=== PATIENT | female | born 2000 | race Caucasian/White ===

== ENCOUNTER → 2021-06-27 | Outpatient (CLI) | payer OTHER | END | disposition home or self-care (01) | LOC: LABWHC1 13:07 | PROVIDERS: ATTEND Obstetrics & Gynecology | DX: O00.90 Unspecified ectopic pregnancy without intrauterine pregnancy (principal); Z3A.00 Weeks of gestation of pregnancy not specified | CPT/HCPCS: 36415; 84702; 86850; 86900; 86901 ==

== ENCOUNTER → 2022-01-25 | Outpatient (CLI) | payer OTHER ==
[2022-01-25 06:55] VITALS: BP 142/83; PULSE 123; RESP 16; TEMP 97
--- NOTE | 2022-01-25 07:23 | P.MSEPDOC ---
Presenting Problems - Arrival Data Date of Arrival on Unit: 01/25/22 Time of Arrival on Unit: 02:11 Mode of Transport: Ambulatory - Complaint OB-Reason for Admission/Chief Complaint: Pain Comment: Patient arrived in triage with cramping pain 4/10 and bilateral leg swelling 1+ lower leg edema. 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 Review of Systems - Review of Systems Constitutional: No problems Breast: No problems ENT: No problems Cardiovascular: No problems Respiratory: No problems Gastrointestinal: No problems Genitourinary: No problems Musculoskeletal: No problems Neurological: No problems Skin: No problems Vital Signs - Temperature Temperature: 97.0 F Temperature Source: Oral - Pulse Pulse Oximetery Pulse Rate: 123 Pulse Assessment Method: Pulse Oximetry - Respirations Respiratory Rate: 16 Oxygen Delivery Method: Room Air O2 Sat by Pulse Oximetry: 100 - Blood Pressure Right Arm Blood Pressure: 142/83 Blood Pressure Mean: 102 Blood Pressure Source: Automatic Cuff Medical Screen Scoring - Uterine Contractions Frequency From (mins): 2 Frequency To (mins): 3 Duration From (seconds): 30 Duration To (seconds): 70 Intensity: Mild Resting: Soft to palpation - Assessment - Baby A Baseline FHR: 120 Heart Rate - NICHD Category: Category I (Normal) NST: Reactive Physician Notification - Physician Notified Physician Notified Date: 01/25/22 Physician Notified Time: 02:40 Physician: Guillermo Diamond New Order Received: Yes Maternal Triage Index - Non-Urgent/Priority 4 Non-Urgent Priority 4: Yes Criteria Met for Priority 4: RN spoke with Dr. Dara Diamond aware of maternal status, status,. reason for visit, cervical check, and amnisure negative result, orders to keep patient. for 1 hour check BP if elevated above 140/[address] Diamond and check cervix in 1. hour. If no change and BP stable discharge patient. Disposition - Disposition OB Disposition: Discharge to home Discharge Date: 01/25/22 Discharge Time: 03:52 I agree with the RN Medical Screening Exam: Yes Case reviewed; plan agreed upon as documented in EMR&OBIX.: Yes Diagnosis: FALSE LABOR BEFORE 37 COMPLETED WEEKS OF GEST, THIRD TRI (Patient presents to triage with complaints of low back pain, chronic lower extremity edema, concern of labor. Patient's been followed by Dr. Tinoco for severe scoliosis. Patient is scheduled for section for this reason. Cervix is closed. Patient's back pain and edema have been going on for many months throughout the and there is no evidence of maternal compromise. Patient did have an initial blood pressure was mildly elevated once at admission thought to be secondary to pain. Multiple serial blood pressure shows that it is not elevated. Patient will follow up in the office as scheduled or return if she has any concerns)
== END | disposition home or self-care (01) ==
LOC: FBPOP 02:11
PROVIDERS: ATTEND Obstetrics & Gynecology
DX: O47.03 False labor before 37 completed weeks of gestation, third trimester (principal); Z3A.36 36 weeks gestation of pregnancy
CPT/HCPCS: 59025; 84112; G0463; 99213

== ENCOUNTER 2022-02-13 09:46 | Inpatient (IN) | payer OTHER ==
[2022-02-07 15:04] VITALS: BMI 34.0
[2022-02-13] MEDS ORDERED: LACTATED RINGERS 1,000 ML IV ONE (10:04)
[2022-02-13] MEDS ORDERED: CITRIC ACID-SODIUM CITRATE 15 ML CUP PO ONE (10:04)
[2022-02-13 11:01] LABS: Basophils % (A) 0 %; Eosinophils # (A) 0.1 k/uL (0-0.7); Eosinophils % (A) 1 %; HCT 35.8 % (34.0-46.0); HGB 11.9 gm/dL (11.4-16.0); Hypochromasia Slight; Lymphocytes # (A) 1.9 k/uL (1.0-4.8); Lymphocytes % (A) 22 %; MCH 28.7 pg (25.0-35.0); MCHC 33.2 g/dL (31.0-37.0); MCV 86.5 fL (80.0-100.0); Mean Platelet Volume 8.9; Monocytes # (A) 0.5 k/uL (0-1.0); Monocytes % (A) 6 %; Neutrophils % (A) 69 %; Platelet Count 151 k/uL (150-450); RBC 4.14 m/uL (3.80-5.40); RDW 15.1 % (11.5-15.5); WBC 8.7 k/uL (3.8-10.6)
[2022-02-13] MEDS ORDERED: INFLUENZA VACC (6 MOS-64 YRS) 60 MCG/0.5 ML SYRINGE IM ONE (11:22)
--- NOTE | 2022-02-13 12:14 | P.HPOB ---
History of Present Illness H&P Date: 02/13/22 Chief Complaint: primary low transverse with Tubal ligation 21 year old presents at 39 weeks 4 days for primary low transverse c- section and tubal ligation. She has had surgery on her back and pelvis contraindicating vaginal delivery. Review of Systems All systems: negative Constitutional: Denies chills, Denies fever Eyes: denies blurred vision, denies pain Ears, nose, mouth and throat: Denies headache, Denies sore throat Cardiovascular: Denies chest pain, Denies shortness of breath Respiratory: Denies cough Gastrointestinal: Denies abdominal pain, Denies diarrhea, Denies nausea, Denies vomiting Genitourinary: Denies dysuria, Denies hematuria Musculoskeletal: Denies myalgias Integumentary: Denies pruritus, Denies rash Neurological: Denies numbness, Denies weakness Psychiatric: Denies anxiety, Denies depression Endocrine: Denies fatigue, Denies weight change Past Medical History Past Medical History: Asthma Additional Past Medical History / Comment(s): severe congenital scoliosis,"conjoined ribs", anemia History of Any Multi-Drug Resistant Organisms: None Reported Past Surgical History: Back Surgery Additional Past Surgical History / Comment(s): multiple back surgeries Past Anesthesia/Blood Transfusion Reactions: No Reported Reaction, Motion Sickness Additional Past Anesthesia/Blood Transfusion Reaction / Comment(s): no known problems w/ blood transfusion Past Psychological History: No Psychological Hx Reported Smoking Status: Never smoker Past Alcohol Use History: None Reported Past Drug Use History: None Reported - Past Family History Mother Family Medical History: No Reported History Medications and Allergies Home Medications Medication Instructions Recorded Confirmed Type Vit No.179/Iron/Folic 1 tab PO DAILY 01/25/22 02/13/22 History [ Tablet] Allergies Allergy/AdvReac Type Severity Reaction Status Date / Time adhesive tape Allergy Rash/Hives Verified 02/13/22 10:13 Exam Osteopathic Statement: *. No significant issues noted on an osteopathic structural exam other than those noted in the History and Physical/Consult. Vital Signs Temp Pulse Resp BP Pulse Ox 02/13/22 10:04 97.8 F 115 H 16 127/75 98 Intake and Output 02/12/22 02/13/22 02/13/22 22:59 06:59 14:59 Other: Weight 73.936 kg HEart: RRR Lungs: CTAB Abdomen: soft, nontender Extremeties: neg uvaldo's Results Result Diagrams: 02/13/22 10:42 Assessment and Plan (1) Scoliosis Current Visit: Yes Status: Acute Code(s): M41.9 - SCOLIOSIS, UNSPECIFIED SNOMED Code(s): 819825172 (2) History of back surgery Current Visit: Yes Status: Acute Code(s): Z98.890 - OTHER SPECIFIED POSTPROCEDURAL STATES SNOMED Code(s): 258696534 (3) 39 weeks gestation of Current Visit: Yes Status: Acute Code(s): Z3A.39 - 39 WEEKS GESTATION OF SNOMED Code(s): 35461977 (4) Family planning Current Visit: Yes Status: Acute Code(s): Z30.09 - ENCOUNTER FOR OT GENERAL CNSL AND ADVICE ON CONTRACEPTION SNOMED Code(s): 712707295 Plan: 1. primary low transverse with tubal ligation
[2022-02-13] MEDS ORDERED: HYDROmorphone (PF) 1 MG/ML ONE (12:21)
[2022-02-13] MEDS ORDERED: fentaNYL (PF) 50 MCG/ML 2 ML AMP ONE (12:21)
[2022-02-13] MEDS ORDERED: PROPOFOL 10 MG/ML 20 ML VIAL IV ONE (12:21)
[2022-02-13] MEDS ORDERED: LIDOCAINE 2% INJ 20 MG/ML (2 ML VIAL) ONE (12:21)
[2022-02-13] MEDS ORDERED: OXYTOCIN 30 UNITS/500 ML NS BAG IV ONE (12:21)
[2022-02-13] MEDS ORDERED: SUCCINYLCHOLINE CHLORIDE 200 MG/10 ML VIAL IV ONE (12:21)
[2022-02-13] MEDS ORDERED: NALOXONE 0.4 MG/ML 1 ML VIAL IV PRN ×2 (13:01→13:02)
[2022-02-13] MEDS ORDERED: diphenhydrAMINE 25 MG CAP PO PRN (13:01)
[2022-02-13] MEDS ORDERED: ZOLPIDEM 5 MG TAB PO PRN (13:01)
[2022-02-13] MEDS ORDERED: SIMETHICONE 80 MG CHEWABLE PO PRN (13:01)
[2022-02-13] MEDS ORDERED: METOCLOPRAMIDE 5 MG/ML 2 ML VIAL IVP PRN (13:01)
[2022-02-13] MEDS ORDERED: diphenhydrAMINE 50 MG CAP PO PRN (13:01)
[2022-02-13] MEDS ORDERED: ONDANSETRON 4 MG/2 ML VIAL IVP PRN (13:01)
[2022-02-13] MEDS ORDERED: diphenhydrAMINE 50 MG/ML 1 ML VIAL IVP PRN ×2 (13:01)
[2022-02-13] MEDS ORDERED: LANOLIN CREAM 5 GM TUBE TOPICAL PRN (13:01)
[2022-02-13] MEDS ORDERED: HYDROmorphone PCA 10 MG/50 ML BAG IV PRN (13:02)
[2022-02-13] MEDS: LACTATED RINGERS 1,000 ML IV SCH ×2 (13:05→23:58)
--- NOTE | 2022-02-13 13:07 | P.OP ---
Date of Procedure: 02/13/22 Preoperative Diagnosis: 1. at 39 weeks 4 days 2. congenital scoliosis with conjoined ribs and hx back surgery 3. family planning Postoperative Diagnosis: 1. at 39 weeks 4 days 2. congenital scoliosis with conjoined ribs and hx back surgery 3. family planning Procedure(s) Performed: primary low transverse with tubal ligation Anesthesia: TOY Surgeon: Radha Tinoco Sole Stapler Welt #1: Guillermo Diamond Estimated Blood Loss (ml): 500 IV fluids (ml): 700 Urine output (ml): 200 Pathology: other (segments of bilateral fallopian tubes) Condition: stable Disposition: floor Operative Findings: normal uterus, tubes, ovaries. Viable female, Apgars 9, 9, weight 7 pounds Description of Procedure: Patient was taken to the operating room where Gen. anesthesia was obtained without difficulty. She was prepped and draped in normal sterile fashion in dorsal supine position with a leftward tilt. Pfannenstiel skin incision was made the scalpel and carried through to the underlying layer of fascia with the scalpel. Fascia was incised in midline and carried bilaterally with the Arce scissors. The superior aspect of the fascial incision was grasped with Cherokee clamps elevated and the underlying rectus muscles dissected off with the Arce's. Attention was then turned to inferior aspect of same incision which in a similar fashion was grasped tented up and the underlying rectus muscles dissected off with the Arce's. The rectus muscles were the midline and the peritoneum was identified tented up and entered sharply with the scalpel. The incision was extended superiorly and inferiorly with good visualization of the bladder. The bladder blade was inserted and the vesicouterine peritoneum was incised the Metzenbaums then carried bilaterally and bladder flap created digitally. A low transverse incision was then made on the uterus with the scalpel. This was carried bilaterally and digital manner. 's head delivered atraumatically, nose and mouth bulb suctioned, cord clamped and cut, infant handed off to waiting nurses. Apgars 9,9, weight 7 lbs. Placenta delivered manually, intact with three-vessel cord. The uterus is exteriorized and cleared of all clots and debris. The uterine incision was closed with 0 Vicryl in a running locked fashion. Second layer of the same sutures used in imbricating fashion to obtain excellent hemostasis. Both ovaries and tubes appeared normal. the right fallopian tube was grasped with a hemostat and a window was made in the mesosalpinx with the Bovie. This fallopian tube was doubly ligated segment was removed and the pedicles were cauterized with the Bovie. The left fallopian tube was grasped 6 hemostat and a window was made in the mesosalpinx with the Bovie. This fallopian tube was doubly ligated, segment was removed, and the pedicles were cauterized with the Bovie.The uterus was placed back into the abdomen. The peritoneum was reapproximated using 2-0 Vicryl in a running fashion. The muscles were reapproximated using 2-0 Vicryl in interrupted fashion. The fascia was reapproximated using 0 Vicryl in a running fashion. The subcutaneous tissues closed with 3-0 Vicryl running fashion. The skin was closed landon. Patient tolerated the procedure well, sponge and instrument counts were correct times 2 and she was taken to the recovery room in stable condition.
[2022-02-13] MEDS ORDERED: OXYTOCIN 30 UNITS/500 ML NS 30 UNIT in SALINE 1 500ML.BAG IV SCH (13:15)
[2022-02-13] MEDS: ACETAMINOPHEN TAB 500 MG TAB PO SCH ×2 (17:48→23:59)
[2022-02-13] MEDS ORDERED: Rhogam IMMUNE GLOBULIN 1,500 UNIT/1 ML IM ONE (20:55)
[2022-02-13] MEDS: SENNOSIDES-DOCUSATE SODIUM 1 EACH TAB PO SCH (20:57)
[2022-02-13] MEDS: IBUPROFEN 600 MG TAB PO SCH (21:24)
[2022-02-13] MEDS: KETOROLAC 15 MG/ML 1 ML VIAL IVP SCH (23:56)
[2022-02-14] MEDS: ACETAMINOPHEN TAB 500 MG TAB PO SCH ×4 (03:12→23:59)
[2022-02-14] MEDS: LACTATED RINGERS 1,000 ML IV SCH ×2 (03:12→14:19)
[2022-02-14] MEDS: IBUPROFEN 600 MG TAB PO SCH ×4 (03:14→17:37)
[2022-02-14] MEDS: KETOROLAC 15 MG/ML 1 ML VIAL IVP SCH ×3 (06:17→20:39)
[2022-02-14 06:37] LABS: Basophils % (A) 0 %; Eosinophils % (A) 0 %; Hypochromasia Moderate; Lymphocytes # (A) 1.8 k/uL (1.0-4.8); Lymphocytes % (A) 18 %; MCH 29.3 pg (25.0-35.0); MCHC 33.3 g/dL (31.0-37.0); MCV 88.1 fL (80.0-100.0); Monocytes # (A) 0.6 k/uL (0-1.0); Monocytes % (A) 7 %; Neutrophils % (A) 73 %; Platelet Count 147 k/uL (150-450); RBC 1.99 m/uL (3.80-5.40); RDW 15.9 % (11.5-15.5); WBC 9.6 k/uL (3.8-10.6)
[2022-02-14 07:10] LABS: HCT 17.6 % (34.0-46.0); HGB 5.8 gm/dL (11.4-16.0)
[2022-02-14 07:50] LABS: Basophils % (A) 0 %; Eosinophils % (A) 0 %; Hypochromasia Moderate; Lymphocytes # (A) 1.6 k/uL (1.0-4.8); Lymphocytes % (A) 19 %; MCHC 32.7 g/dL (31.0-37.0); MCV 88.8 fL (80.0-100.0); Mean Platelet Volume 9.1; Monocytes # (A) 0.5 k/uL (0-1.0); Monocytes % (A) 6 %; Neutrophils # (A) 6.2 k/uL (1.3-7.7); Neutrophils % (A) 73 %; Platelet Count 149 k/uL (150-450); RBC 1.99 m/uL (3.80-5.40); RDW 15.9 % (11.5-15.5); WBC 8.5 k/uL (3.8-10.6)
[2022-02-14 08:09] LABS: HCT 17.7 % (34.0-46.0); HGB 5.8 gm/dL (11.4-16.0)
[2022-02-14] MEDS: SENNOSIDES-DOCUSATE SODIUM 1 EACH TAB PO SCH ×2 (09:00→20:40)
--- NOTE | 2022-02-14 09:10 | P.PNOBGPC ---
Subjective - Subjective Principal diagnosis: S/P primary low transverse POD #1 Interval history: Seen and examined. Denies nausea, vomiting, chest pain, shortness of breath or calf pain. She did pass several clots when she got up earlier and had ringing in her ears. Her hemoglobin today came back very low at 5.8 which I repeated it was the same. We discussed the risks and benefits of taking a blood transfusion. Patient agrees to this and will take one unit of packed red blood cells Patient reports: Reports appetite normal, Reports voiding normally, Reports pain well controlled, Reports ambulating normally [place]: doing well Objective - Vital Signs Latest vital signs: Vital Signs Temp Pulse Resp BP Pulse Ox 02/14/22 08:46 97 16 100 02/14/22 07:42 98.6 F 86 16 118/65 99 02/14/22 04:00 98.2 F 104 H 16 108/69 97 02/14/22 00:00 98.4 F 93 14 121/79 99 02/13/22 20:00 98.7 F 98 16 111/68 96 02/13/22 15:05 98.1 F 122 H 14 98/54 99 02/13/22 14:35 98.1 F 119 H 14 115/55 94 L 02/13/22 14:05 98.1 F 115 H 16 127/59 95 02/13/22 13:50 98.2 F 91 16 133/68 100 02/13/22 13:35 98.2 F 109 H 18 122/74 98 02/13/22 13:20 97 18 137/74 100 02/13/22 13:17 100 02/13/22 13:05 97.9 F 108 H 18 127/80 100 02/13/22 10:04 97.8 F 115 H 16 127/75 98 Intake and Output 02/13/22 02/14/22 02/14/22 22:59 06:59 14:59 Output Total 862 200 Balance -862 -200 Output: Urine 300 200 Uretheral (Stokes) 100 Output, Quantitative 562 Blood Loss Other: # Voids 0 - Exam Lungs: bilateral: normal Chest: Normal S1, Normal S2 Extremities: Present: normal Abdomen: Present: normal appearance, soft. Absent: distention, tenderness Incision: Present: normal, dry, intact Uterus: Present: normal, firm - Labs Labs: Abnormal Lab Results - Last 24 Hours (Table) 02/13/22 02/14/22 02/14/22 Range/Units 10:42 06:12 07:31 RBC 1.99 L 1.99 L (3.80-5.40) m/uL Hgb 5.8 L* D 5.8 L* (11.4-16.0) gm/dL Hct 17.6 L* 17.7 L* (34.0-46.0) % RDW 15.9 H 15.9 H (11.5-15.5) % Plt Count 147 L 149 L (150-450) k/uL Crossmatch See Detail Assessment and Plan (1) Scoliosis Current Visit: Yes Status: Chronic Code(s): M41.9 - SCOLIOSIS, UNSPECIFIED SNOMED Code(s): 848935197 (2) History of back surgery Current Visit: Yes Status: Chronic Code(s): Z98.890 - OTHER SPECIFIED POSTPROCEDURAL STATES SNOMED Code(s): 453301310 (3) 39 weeks gestation of Current Visit: Yes Status: Resolved Code(s): Z3A.39 - 39 WEEKS GESTATION OF SNOMED Code(s): 43908681 (4) Family planning Current Visit: Yes Status: Resolved Code(s): Z30.09 - ENCOUNTER FOR OT GENERAL CNSL AND ADVICE ON CONTRACEPTION SNOMED Code(s): 346813802 (5) Status post primary low transverse section Current Visit: Yes Status: Acute Code(s): Z98.891 - HISTORY OF UTERINE SCAR FROM PREVIOUS SURGERY SNOMED Code(s): 162492201 (6) Status post tubal ligation at time of delivery, current hosp Current Visit: Yes Status: Acute Code(s): O80 - ENCOUNTER FOR FULL-TERM UNCOMPLICATED DELIVERY; Z30.2 - ENCOUNTER FOR STERILIZATION SNOMED Code(s): 31786366938032 (7) Acute blood loss anemia Current Visit: Yes Status: Acute Code(s): D62 - ACUTE POSTHEMORRHAGIC ANEMIA SNOMED Code(s): 364504152 Plan: 1. Transfuse 1 unit of packed red blood cells 2. Monitor vitals closely 3. Regular diet
[2022-02-14] MEDS: FERROUS SULFATE 325 MG TAB PO SCH ×2 (12:30→17:37)
[2022-02-15] MEDS: KETOROLAC 15 MG/ML 1 ML VIAL IVP SCH ×4 (00:02→18:04)
[2022-02-15 05:55] LABS: Anisocytosis Slight; Basophils % (A) 0 %; Eosinophils # (A) 0.1 k/uL (0-0.7); Eosinophils % (A) 1 %; HCT 21.8 % (34.0-46.0); HGB 7.1 gm/dL (11.4-16.0); Hypochromasia Moderate; Lymphocytes # (A) 2.2 k/uL (1.0-4.8); Lymphocytes % (A) 28 %; MCH 29.1 pg (25.0-35.0); MCHC 32.5 g/dL (31.0-37.0); MCV 89.6 fL (80.0-100.0); Mean Platelet Volume 8.2; Monocytes # (A) 0.4 k/uL (0-1.0); Monocytes % (A) 4 %; Neutrophils # (A) 5.1 k/uL (1.3-7.7); Neutrophils % (A) 64 %; Platelet Count 179 k/uL (150-450); Poikilocytosis Slight; RBC 2.43 m/uL (3.80-5.40); RDW 16.1 % (11.5-15.5)
--- NOTE | 2022-02-15 06:30 | P.PNOBGPC ---
Subjective - Subjective Patient reports: Reports appetite normal, Reports voiding normally, Reports pain well controlled, Reports ambulating normally : doing well Objective - Vital Signs Latest vital signs: Vital Signs Temp Pulse Pulse Resp BP BP Pulse Ox 02/15/22 00:00 97.9 F 108 H 16 100/64 99 02/14/22 16:00 98.4 F 98 16 114/70 98 02/14/22 12:03 98.5 F 94 16 106/69 98 02/14/22 12:00 98.5 F 94 16 106/69 98 02/14/22 10:18 98.5 F 104 H 16 97/63 98 02/14/22 09:58 97.7 F 99 16 113/73 99 02/14/22 09:50 98.5 F 112 H 16 110/63 02/14/22 08:46 97 16 100 02/14/22 07:42 98.6 F 86 16 118/65 99 Intake and Output 02/14/22 02/14/22 02/15/22 14:59 22:59 06:59 Intake Total 281 Output Total 600 Balance -319 Intake: Blood Product 281 Rc Pheresis 2 As3 Unit 281 [id number] Output: Urine 600 Other: # Voids 1 - Exam Lungs: bilateral: normal Chest: Normal S1, Normal S2 Extremities: Present: normal Abdomen: Present: normal appearance, soft. Absent: distention, tenderness Incision: Present: normal, dry, intact Uterus: Present: normal, firm - Labs Labs: Abnormal Lab Results - Last 24 Hours (Table) 02/13/22 02/14/22 02/14/22 Range/Units 10:42 06:12 07:31 RBC 1.99 L 1.99 L (3.80-5.40) m/uL Hgb 5.8 L* D 5.8 L* (11.4-16.0) gm/dL Hct 17.6 L* 17.7 L* (34.0-46.0) % RDW 15.9 H 15.9 H (11.5-15.5) % Plt Count 147 L 149 L (150-450) k/uL Crossmatch See Detail 02/15/22 Range/Units 05:41 RBC 2.43 L (3.80-5.40) m/uL Hgb 7.1 L (11.4-16.0) gm/dL Hct 21.8 L (34.0-46.0) % RDW 16.1 H (11.5-15.5) % Plt Count (150-450) k/uL Crossmatch Assessment and Plan Assessment: Post operative day #2. Patient is resting without new complaints. Patient had a significant drop in her hemoglobin from preoperative to postoperative and was given 1 unit of packed red blood cells yesterday. Patient's hemoglobin is had an appropriate increase from 5.8 to 7.1. Patient still tired but is ambulating and urinating without difficulty. Vital signs are stable. Exam shows her incision to be intact and dry she is having normal lochia. My impression is that she's had secondary anemia due to surgery and does not appear to have ongoing bleeding. Plan is to continue routine postoperative care and most likely discharge home tomorrow. I did start her on some iron therapy. (1) Status post primary low transverse section Current Visit: Yes Status: Acute Code(s): Z98.891 - HISTORY OF UTERINE SCAR FROM PREVIOUS SURGERY SNOMED Code(s): 360802510 (2) 39 weeks gestation of Current Visit: Yes Status: Resolved Code(s): Z3A.39 - 39 WEEKS GESTATION OF SNOMED Code(s): 93561343
[2022-02-15] MEDS: IBUPROFEN 600 MG TAB PO SCH ×3 (06:46→17:56)
[2022-02-15] MEDS: FERROUS SULFATE 325 MG TAB PO SCH ×2 (08:17→18:23)
[2022-02-15] MEDS: SENNOSIDES-DOCUSATE SODIUM 1 EACH TAB PO SCH ×3 (08:17→20:02)
[2022-02-15] MEDS: ACETAMINOPHEN TAB 500 MG TAB PO SCH ×3 (12:53→20:02)
[2022-02-15 21:13] VITALS: RESP 18
[2022-02-16] MEDS: ACETAMINOPHEN TAB 500 MG TAB PO SCH ×3 (02:26→08:54)
[2022-02-16] MEDS: IBUPROFEN 600 MG TAB PO SCH ×3 (02:26→08:55)
[2022-02-16] MEDS: KETOROLAC 15 MG/ML 1 ML VIAL IVP SCH ×2 (02:27→08:55)
--- NOTE | 2022-02-16 06:22 | P.PNOBGPC ---
Subjective - Subjective Patient reports: Reports appetite normal, Reports voiding normally, Reports pain well controlled, Reports ambulating normally : doing well Objective - Vital Signs Latest vital signs: Vital Signs Temp Pulse Resp BP Pulse Ox 02/16/22 00:00 98.0 F 95 18 108/67 100 02/15/22 20:00 98.2 F 99 18 114/72 100 02/15/22 16:00 98.2 F 98 16 114/73 100 02/15/22 12:00 98.4 F 91 16 116/74 100 02/15/22 08:00 97.8 F 91 16 101/63 100 Intake and Output 02/15/22 02/15/22 02/16/22 14:59 22:59 06:59 Other: # Voids 2 - Exam Lungs: bilateral: normal Chest: Normal S1, Normal S2 Extremities: Present: normal Abdomen: Present: normal appearance, soft. Absent: distention, tenderness Incision: Present: normal, dry, intact Uterus: Present: normal, firm Assessment and Plan Assessment: Postoperative day #3. Patient continues to do well and wishes to go home. Hemoglobin increased yesterday from 5.8-7.1 after 1 unit of packed red blood cells. Vital signs are stable and she is afebrile. She does appear pale but is for the most part feeling better. Incision is intact and dry. She is tolerating regular diet and urinating without difficulty. Plan today is to continue routine postoperative care discharge home follow up with Dr. Tinoco 1 week. (1) Status post primary low transverse section Current Visit: Yes Status: Acute Code(s): Z98.891 - HISTORY OF UTERINE SCAR FROM PREVIOUS SURGERY SNOMED Code(s): 485448445 (2) 39 weeks gestation of Current Visit: Yes Status: Resolved Code(s): Z3A.39 - 39 WEEKS GESTATION OF SNOMED Code(s): 44165820
--- NOTE | 2022-02-16 06:27 | P.DS ---
Providers Date of admission: 02/13/22 09:46 Expected date of discharge: 02/16/22 Attending physician: Radha Tinoco Primary care physician: Stated None - Discharge Diagnosis(es) (1) Status post primary low transverse section Current Visit: Yes Status: Acute (2) 39 weeks gestation of Current Visit: Yes Status: Resolved Hospital Course: Please see dictated H&P for intimate details of this patient's admission. Brief summary this is a pleasant 21-year-old 1 para 0 female 39-4/7 weeks gestation who is admitted to labor and delivery for elective primary section secondary to severe scoliosis and previous back surgeries and also requested permanent sterilization. Please see dictated admission history and physical per Dr. Tinoco. Patient undergoes primary low transverse section and bilateral partial salpingectomy. Surgery is complicated by postoperative anemia. Patient's hemoglobin dropped to 5.8. For this reason she is given one unit of packed red blood cells which elevates her hemoglobin to 7.1. Patient does well thereafter and is ambulating and urinating without difficulty. On postoperative day #3 she is felt to be stable for discharge home follow up with Dr. Tinoco 1 week. Procedures: Primary low transverse section and bilateral partial salpingectomy Patient Condition at Discharge: Stable Plan - Discharge Summary Discharge Rx Participant: No New Discharge Prescriptions: New Ibuprofen [Motrin] 600 mg PO Q6H #30 tab Ferrous Sulfate [Iron (65 MG Elemental)] 325 mg PO BID-W/MEALS #60 tab oxyCODONE HCL [OxyIR] 5 mg PO Q6HR PRN #18 tab PRN Reason: Pain No Action Vit No.179/Iron/Folic [ Tablet] 1 tab PO DAILY Discharge Medication List Vit No.179/Iron/Folic [ Tablet] 1 tab PO DAILY 01/25/22 [History] Ferrous Sulfate [Iron (65 MG Elemental)] 325 mg PO BID-W/MEALS #60 tab 02/15/22 [Rx] Ibuprofen [Motrin] 600 mg PO Q6H #30 tab 02/15/22 [Rx] oxyCODONE HCL [OxyIR] 5 mg PO Q6HR PRN #18 tab 02/15/22 [Rx] Follow up Appointment(s)/Referral(s): Radha Tinoco DO [Doctor of Osteopathic Medicine] - 02/03/23 10:45 am (Post Op Appointment 02-26-2022 @ 01:30) Patient Instructions/Handouts: (DC), Iron Rich Diet (DC), Iron Deficiency Anemia (GEN) Activity/Diet/Wound Care/Special Instructions: No heavy lifting or strenuous activity for 6 weeks. No intercourse or anything per vagina for 6 weeks. Please call if any fever, chills, excessive vaginal bleeding, and/or abdominal pain. Please see Dr. Tinoco as scheduled in 1 week for an incision check and a repeat hemoglobin. Discharge Disposition: HOME SELF-CARE
[2022-02-16] MEDS: FERROUS SULFATE 325 MG TAB PO SCH (09:00)
[2022-02-16 10:01] VITALS: BP 119/82; PULSE 102; TEMP 98.4
[2022-02-16] MEDS: SENNOSIDES-DOCUSATE SODIUM 1 EACH TAB PO SCH (10:10)
== END 2022-02-16 11:00 | disposition home or self-care (01) | DRG 784 ==
LOC: 4FBP 09:46
PROVIDERS: ADMIT Obstetrics & Gynecology; ATTEND Obstetrics & Gynecology
PROC: 0UB70ZZ Excision of Bilateral Fallopian Tubes, Open Approach (ICD-10-PCS; 2022-02-13)
PROC: 4A0HXCZ Measurement of Products of Conception, Cardiac Rate, External Approach (ICD-10-PCS; 2022-02-13)
PROC: 10D00Z1 Extraction of Products of Conception, Low, Open Approach (ICD-10-PCS; principal; 2022-02-13 12:21)
PROC: 30233N1 Transfusion of Nonautologous Red Blood Cells into Peripheral Vein, Percutaneous Approach (ICD-10-PCS; 2022-02-14)
DX: O99.02 Anemia complicating childbirth (principal); D62 Acute posthemorrhagic anemia; O99.354 Diseases of the nervous system complicating childbirth; Z37.0 Single live birth; M41.9 Scoliosis, unspecified; O99.52 Diseases of the respiratory system complicating childbirth; J45.909 Unspecified asthma, uncomplicated; Z30.2 Encounter for sterilization; Z3A.39 39 weeks gestation of pregnancy; Z91.048 Other nonmedicinal substance allergy status
CPT/HCPCS: 85025; 85461; 86850; 86900; 86901; 86920; 88302; 90686

== ENCOUNTER 2022-02-27 02:27 | Emergency (ER) | payer OTHER ==
[2022-02-27] MEDS ORDERED: SODIUM CHLORIDE 0.9% 1,000 ML IV STA (02:47)
--- NOTE | 2022-02-27 02:48 | ED ---
Female Urogenital HPI - General Stated complaint: Vaginal bleeding 2wks Time Seen by Provider: 02/27/22 02:47 Source: old records reviewed Mode of arrival: EMS Limitations: no limitations - History of Present Illness Initial comments: This is a 21-year-old female to the emergency department for evaluation patient remained if her abdominal pain cramping. Significant vaginal bleeding after recent vaginal delivery Complaint: vaginal bleeding -: days(s) Location: suprapubic Severity: moderate Severity scale (1-10): 6 Quality: cramping Consistency: constant Improves with: none Worsens with: none Patient : No Associated Symptoms: vaginal bleeding, abdominal pain, weakness - Related Data Home Medications Medication Instructions Recorded Confirmed Vit No.179/Iron/Folic 1 tab PO DAILY 01/25/22 02/13/22 [ Tablet] Previous Rx's Medication Instructions Recorded Ferrous Sulfate [Iron (65 MG 325 mg PO BID-W/MEALS #60 tab 02/15/22 Elemental)] Ibuprofen [Motrin] 600 mg PO Q6H #30 tab 02/15/22 oxyCODONE HCL [OxyIR] 5 mg PO Q6HR PRN #18 tab 02/15/22 Allergies Allergy/AdvReac Type Severity Reaction Status Date / Time adhesive tape Allergy Rash/Hives Verified 02/13/22 10:13 Review of Systems ROS Statement: Those systems with pertinent positive or pertinent negative responses have been documented in the HPI. ROS Other: All systems not noted in ROS Statement are negative. Past Medical History Past Medical History: Asthma Additional Past Medical History / Comment(s): severe congenital scoliosis,"conjoined ribs", anemia History of Any Multi-Drug Resistant Organisms: None Reported Past Surgical History: Back Surgery Additional Past Surgical History / Comment(s): multiple back surgeries Past Anesthesia/Blood Transfusion Reactions: No Reported Reaction, Motion Sickness Additional Past Anesthesia/Blood Transfusion Reaction / Comment(s): no known problems w/ blood transfusion Past Psychological History: No Psychological Hx Reported Smoking Status: Never smoker Past Alcohol Use History: None Reported Past Drug Use History: None Reported - Past Family History Mother Family Medical History: No Reported History General Exam General appearance: alert, in no apparent distress Head exam: Present: atraumatic, normocephalic, normal inspection Eye exam: Present: normal appearance, PERRL, EOMI. Absent: scleral icterus, conjunctival injection, periorbital swelling ENT exam: Present: normal exam, mucous membranes moist Neck exam: Present: normal inspection. Absent: tenderness, meningismus, lymphadenopathy Respiratory exam: Present: normal lung sounds bilaterally. Absent: respiratory distress, wheezes, rales, rhonchi, stridor Cardiovascular Exam: Present: regular rate, normal rhythm, normal heart sounds. Absent: systolic murmur, diastolic murmur, rubs, gallop, clicks GI/Abdominal exam: Present: soft, normal bowel sounds. Absent: distended, tenderness, guarding, rebound, rigid Extremities exam: Present: normal inspection, full ROM, normal capillary refill. Absent: tenderness, pedal edema, joint swelling, calf tenderness Back exam: Present: normal inspection Neurological exam: Present: alert, oriented X3, CN II-XII intact Psychiatric exam: Present: normal affect, normal mood Skin exam: Present: warm, dry, intact, normal color. Absent: rash Course Vital Signs 02/27/22 02/27/22 02:50 04:00 Temperature 98 F Pulse Rate 84 73 Respiratory 19 16 Rate Blood Pressure 124/66 93/50 O2 Sat by Pulse 99 100 Oximetry - Reevaluation(s) Reevaluation #1: 02/27/22 03:28 Medical record is reviewed Reevaluation #2: 02/27/22 03:28 Patient for results and questions answered Reevaluation #3: Patient feels improved Reevaluation #4: 02/27/22 03:28 Differential Vaginal Bleeding: Spontaneous , threatened , molar , ectopic , bloody show, incompetent cervix, abruptioplacenta, placenta previa, uterine rupture, dysfunctional uterine bleeding, hemorrhage, uterine fibroids, this is not meant to be an all-inclusive list. Reevaluation #5: 02/27/22 03:28 Was pt. sent in by a medical professional or institution? @ -no Did you speak to anyone other than the patient for history? @ -no Did you review nursing and triage notes? @ -agree Were old charts reviewed? @ -no Differential Diagnosis? @ -no EKG interpreted by me (3pts min.)? @ -[none] X-rays interpreted by me (1pt min.)? @ -[none] CT interpreted by me (1pt min.)? @ -[none] U/S interpreted by me (1pt. min.)? @ -[none] What testing was considered but not performed? (CT, X-rays, U/S, labs)? Why? @ no What meds were considered but not given? Why? @ -[none] Did you discuss the management of the patient with other professionals? @ -no Did you reconcile home meds? @ -[none] Was smoking cessation discussed for >3mins.? @ -[none] Was critical care preformed (if so, how long)? @ -[none] Were there social determinants of health that impacted care today? How? ( Homelessness, low income, unemployed, alcoholism, drug addiction, transportation, low edu. Level, literacy, decrease access to med. care, prison, rehab)? @ -no Was there de-escalation of care discussed even if they declined? (Discuss DNR or withdrawal of care, Hospice)? @ -no What co-morbidities impacted this encounter? (DM, HTN, Smoking, COPD, CAD, Cancer, CVA, Hep., AIDS, mental health diagnosis, sleep apnea, morbid obesity)? @ -no Was patient admitted / discharged? @ -dc Undiagnosed new problem with uncertain prognosis? @ -[none] Drug Therapy requiring intensive monitoring for toxicity (Heparin, Nitro, Insulin, Cardizem)? @ -[none] Were any procedures done? @ -[none] Diagnosis/symptom? @ -[default] Acute, or Chronic, or Acute on Chronic? @ -[default] Uncomplicated (without systemic symptoms) or Complicated (systemic symptoms)? @ -[default] Side effects of treatment? @ -[none] Exacerbation, Progression, or Severe Exacerbation] @ -[no] Poses a threat to life or bodily function? @ -[no] 03/06/22 01:12 Medical Decision Making - Medical Decision Making 21 female persistent bleeding after . Bleeding is slowing down patient said better here in the ER she is not having episodes of syncope or passing out. Hemoglobin is much improved and patient can be discharged home - Lab Data Result diagrams: 02/27/22 02:50 02/27/22 02:50 Lab Results 02/27/22 02/27/22 02/27/22 Range/Units 02:49 02:50 02:50 WBC 6.6 (3.8-10.6) k/uL RBC 3.87 (3.80-5.40) m/uL Hgb 11.5 D (11.4-16.0) gm/dL Hct 36.2 (34.0-46.0) % MCV 93.5 (80.0-100.0) fL MCH 29.6 (25.0-35.0) pg MCHC 31.7 (31.0-37.0) g/dL RDW 17.4 H (11.5-15.5) % Plt Count 273 (150-450) k/uL MPV 8.3 Neutrophils % 60 % Lymphocytes % 29 % Monocytes % 6 % Eosinophils % 3 % Basophils % 1 % Neutrophils # 4.0 (1.3-7.7) k/uL Lymphocytes # 1.9 (1.0-4.8) k/uL Monocytes # 0.4 (0-1.0) k/uL Eosinophils # 0.2 (0-0.7) k/uL Basophils # 0.1 (0-0.2) k/uL Hypochromasia Marked Anisocytosis Slight PT 9.7 (9.0-12.0) sec INR 0.9 (<1.2) APTT 23.3 (22.0-30.0) sec Sodium (137-145) mmol/L Potassium (3.5-5.1) mmol/L Chloride (98-107) mmol/L Carbon Dioxide (22-30) mmol/L Anion Gap mmol/L BUN (7-17) mg/dL Creatinine (0.52-1.04) mg/dL Est GFR (CKD-EPI)AfAm (>60 ml/min/1.73 sqM) Est GFR (CKD-EPI)NonAf (>60 ml/min/1.73 sqM) Glucose (74-99) mg/dL Calcium (8.4-10.2) mg/dL Phosphorus (2.5-4.5) mg/dL Magnesium (1.6-2.3) mg/dL Total Bilirubin (0.2-1.3) mg/dL AST (14-36) U/L ALT (4-34) U/L Alkaline Phosphatase (38-126) U/L Total Protein (6.3-8.2) g/dL Albumin (3.5-5.0) g/dL Blood Type O Negative Blood Type Recheck O Neg Bld Type Recheck Status No Antibody Screen POSITIVE Antibody Identification Anti-D Direct Antiglob Test Negative Spec Expiration Date 03/02/2022 - 234802/27/22 Range/Units 02:50 WBC (3.8-10.6) k/uL RBC (3.80-5.40) m/uL Hgb (11.4-16.0) gm/dL Hct (34.0-46.0) % MCV (80.0-100.0) fL MCH (25.0-35.0) pg MCHC (31.0-37.0) g/dL RDW (11.5-15.5) % Plt Count (150-450) k/uL MPV Neutrophils % % Lymphocytes % % Monocytes % % Eosinophils % % Basophils % % Neutrophils # (1.3-7.7) k/uL Lymphocytes # (1.0-4.8) k/uL Monocytes # (0-1.0) k/uL Eosinophils # (0-0.7) k/uL Basophils # (0-0.2) k/uL Hypochromasia Anisocytosis PT (9.0-12.0) sec INR (<1.2) APTT (22.0-30.0) sec Sodium 139 (137-145) mmol/L Potassium 4.0 (3.5-5.1) mmol/L Chloride 108 H (98-107) mmol/L Carbon Dioxide 26 (22-30) mmol/L Anion Gap 5 mmol/L BUN 16 (7-17) mg/dL Creatinine 0.59 (0.52-1.04) mg/dL Est GFR (CKD-EPI)AfAm >90 (>60 ml/min/1.73 sqM) Est GFR (CKD-EPI)NonAf >90 (>60 ml/min/1.73 sqM) Glucose 87 (74-99) mg/dL Calcium 8.7 (8.4-10.2) mg/dL Phosphorus 3.9 (2.5-4.5) mg/dL Magnesium 2.1 (1.6-2.3) mg/dL Total Bilirubin 0.3 (0.2-1.3) mg/dL AST 18 (14-36) U/L ALT 13 (4-34) U/L Alkaline Phosphatase 113 (38-126) U/L Total Protein 6.3 (6.3-8.2) g/dL Albumin 3.7 (3.5-5.0) g/dL Blood Type Blood Type Recheck Bld Type Recheck Status Antibody Screen Antibody Identification Direct Antiglob Test Spec Expiration Date - Radiology Data Radiology results: report reviewed (Ultrasound pelvis is negative for acute disease), image reviewed Disposition Clinical Impression: Status post primary low transverse section, Dysfunctional uterine bleeding, bleeding Disposition: HOME SELF-CARE Condition: Good Instructions (If sedation given, give patient instructions): Bleeding (ED) Is patient prescribed a controlled substance at d/c from ED?: No Referrals: Son Ordoñez DO [Primary Care Provider] - 1-2 days Time of Disposition: 05:20
[2022-02-27 02:52] VITALS: TEMP 98
[2022-02-27 03:29] LABS: ALT 13 U/L (4-34); AST 18 U/L (14-36); African American GFR (CKD) >90 (>60 ml/min/1.73 sqM); Albumin 3.7 g/dL (3.5-5.0); Alkaline Phosphatase 113 U/L (38-126); Anion Gap 5 mmol/L; Blood Urea Nitrogen 16 mg/dL (7-17); Calcium 8.7 mg/dL (8.4-10.2); Carbon Dioxide 26 mmol/L (22-30); Chloride 108 mmol/L (98-107); Glucose 87 mg/dL (74-99); Magnesium 2.1 mg/dL (1.6-2.3); Non-African American GFR(CKD) >90 (>60 ml/min/1.73 sqM); Phosphorus 3.9 mg/dL (2.5-4.5); Sodium 139 mmol/L (137-145); Total Bilirubin 0.3 mg/dL (0.2-1.3); Total Protein 6.3 g/dL (6.3-8.2)
[2022-02-27 03:35] LABS: INR 0.9 (<1.2); Partial Thromboplastin Time 23.3 sec (22.0-30.0); Prothrombin Time 9.7 sec (9.0-12.0)
--- NOTE | 2022-02-27 03:35 | US ---
EXAMINATION TYPE: US pelvic complete DATE OF EXAM: 02/27/2022 COMPARISON: NONE CLINICAL HISTORY: bleeding. Heavy vaginal bleeding 2 weeks . . 1 TECHNIQUE: . Transabdominal sonographic images of the pelvis were acquired. EXAM MEASUREMENTS: Uterus: 10.4 x 7.8 x 5.5 cm Endometrial Stripe: 1.1 cm Right Ovary: Not vis Left Ovary: Not vis 1. Uterus: Anteverted wnl 2. Endometrium: Complex appearing and measuring 1.1cm 3. Right Ovary: Not vis 4. Left Ovary: Not vis 5. Bilateral Adnexa: wnl 6. Posterior cul-de-sac: wnl IMPRESSION: There is small amount of endometrial fluid. No adnexal mass. Ovaries not seen.
[2022-02-27 03:46] LABS: Anisocytosis Slight; Basophils # (A) 0.1 k/uL (0-0.2); Basophils % (A) 1 %; Eosinophils # (A) 0.2 k/uL (0-0.7); Eosinophils % (A) 3 %; HCT 36.2 % (34.0-46.0); Hypochromasia Marked; Lymphocytes # (A) 1.9 k/uL (1.0-4.8); Lymphocytes % (A) 29 %; MCH 29.6 pg (25.0-35.0); MCHC 31.7 g/dL (31.0-37.0); MCV 93.5 fL (80.0-100.0); Mean Platelet Volume 8.3; Monocytes # (A) 0.4 k/uL (0-1.0); Monocytes % (A) 6 %; Neutrophils % (A) 60 %; Platelet Count 273 k/uL (150-450); RBC 3.87 m/uL (3.80-5.40); RDW 17.4 % (11.5-15.5); WBC 6.6 k/uL (3.8-10.6)
[2022-02-27 04:47] VITALS: BP 93/50; PULSE 73; RESP 16
[2022-02-27 04:57] LABS: HGB 11.5 gm/dL (11.4-16.0)
== END 2022-02-27 06:00 | disposition home or self-care (01) ==
LOC: EC 02:27
DX: O34.211 Maternal care for low transverse scar from previous cesarean delivery (principal); O72.2 Delayed and secondary postpartum hemorrhage; J45.909 Unspecified asthma, uncomplicated; Z91.048 Other nonmedicinal substance allergy status
CPT/HCPCS: 36415; 76856; 80053; 83735; 84100; 85025; 85610; 85730; 86850; 86870; 86880; 86900; 86901; 96360; 96361; 99284